=== PATIENT | female | born 1970 | race Hispanic/Latino ===

== ENCOUNTER 2023-10-10 07:35 | Day surgery (SDC) | payer BC ==
[~2023-10-10] VITALS: Ht 154.9 cm; Wt 57.2 kg
[2023-10-10] VITALS (11 sets, daily range): BP systolic 103–120; BP diastolic 63–73; PULSE 70–84; RESP 14–18
[~2023-10-10 07:35] MED LIST: FERR-82 PO; LEVO125C4 PO; METF-444 PO; TRAM50TA4 PO
[2023-10-10] MEDS ORDERED: 0.9%NACL 1000ML 1,000 ML IV ONE (08:20)
[2023-10-10] MEDS ORDERED: PROPOFOL 10 MG/ML 20ML VIAL IV ONE ×2 (09:08→09:22)
== END 2023-10-10 10:35 | disposition home or self-care (01) ==
LOC: DAH 07:35 → ENDO 07:35
PROVIDERS: ATTEND Internal Medicine
DX: R93.3 Abnormal findings on diagnostic imaging of other parts of digestive tract (principal); R63.4 Abnormal weight loss; R10.10 Upper abdominal pain, unspecified; K29.50 Unspecified chronic gastritis without bleeding; R68.81 Early satiety; K86.89 Other specified diseases of pancreas; E11.9 Type 2 diabetes mellitus without complications; E03.9 Hypothyroidism, unspecified; Z79.01 Long term (current) use of anticoagulants; Z79.899 Other long term (current) drug therapy; Z98.890 Other specified postprocedural states; Z90.710 Acquired absence of both cervix and uterus; Z79.84 Long term (current) use of oral hypoglycemic drugs; Z79.890 Hormone replacement therapy; Z68.23 Body mass index [BMI] 23.0-23.9, adult
CPT/HCPCS: 43242; 82948 ×2; J7030 ×2; J2704 ×2; A4620; A4215 ×3; A4223; A7002; A4222; A4221; A4663; A4606; J3490